=== PATIENT | female | born 1955 | race Caucasian/White ===

== ENCOUNTER 2019-11-28 14:08 | Inpatient (IN) | payer MEDICAID, OTHER ==
[2019-11-28 17:33] VITALS: BP 137/68
[2019-11-28] MEDS ORDERED: Magnesium Hydroxide (MOM) 30 mL UDC PO PRN (20:07)
--- NOTE | 2019-11-29 13:14 | History & Physical ---
ADMIT DATE: 11/29/2019 IDENTIFYING INFORMATION: The patient is a 64-year-old female. CHIEF COMPLAINT: "This is not my name " The patient was admitted on a hold for grave disability. HISTORY OF PRESENT ILLNESS: The patient was admitted on a hold that was written on 11/27/2019. She was delusional with destructive behavior, violent behavior with a history of schizophrenia, bipolar disorder with manic episodes and grandiosity. When I talked to the patient at the beginning, she would not answer me and she was pretended to be asleep, but then later, she opened her eyes and she said that is not her name. Her name is not Deanna Mercedes, her name is Antionette Sánchez. The patient was admitted on a hold for grave disability. The patient herself was not a very good historian. The patient reports that she is single. 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 The patient reports she has not been sleeping well. She has lost weight. She reports that she suffers with cancer. The doctor was giving her medications and that she did not like, so she decided not to continue with treatment. She says "this is my right, its my body and I decide what goes into it." I tried to call her family, called the two members that were on the records. Its son and daughter and her daughter left a message for the son. Voicemail was not set up yet. The patient was not a very good historian, delusional. The patient did not know where she was. She does not know why she is here. She reported they keep putting me in, nothing is wrong with me. She reports she has not been sleeping well, not eating well. She denies any visual hallucination. PAST PSYCHIATRIC HISTORY: The patient reported they put me in, but she is not sure why. She denies any prior suicide attempt. Denies any auditory or visual hallucination; however, she is delusional. SUBSTANCE ABUSE HISTORY: The patient denies. MEDICAL HISTORY: The patient suffers with breast cancer and currently refusing treatment, though she got some treatment before. ALLERGIES: THE PATIENT IS ALLERGIC TO CODEINE. FAMILY AND SOCIAL HISTORY: The patient reports she is to Antionette Sánchez. Patient reports that she has one boy, 22 years of age; however, on her records we have a number for her daughter and Nathan Hutchins, I am not sure if that is her son or somebody else, but she said she has a boy. The patient reported that she was from [place] and her current name is not Daren, she is Antionette Sánchez. 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 The patient denies family psychotic disorder. Unable to tell me, she said she lives in [place]. MENTAL STATUS EXAMINATION: The patient is appropriately dressed, not well groomed. She was in hospital gown. She was alert. She knew the date, being 11/29/2019, but she is not sure why she is here. She said they keep putting me in here. She reports that she has been sleeping or eating well. She denies any intent to harm herself or anyone. Denies any auditory or visual hallucination, delusional. She is here on a hold for grave disability. She was uncooperative with formal mental status exam did not have her memory tested or tell me the president of [facility]. She is a poor historian. Her insight about her illness is poor, does not realize what problem she has. Judgment is poor with her, unable to take care of herself acting delusional. IMPRESSION: Bipolar disorder with psychosis. MEDICAL DIAGNOSES: Deferred to the medical doctor. Her asset, accepting treatment. Negative poor coping skills. INITIAL TREATMENT PLAN: I will be starting the patient on Abilify, we will do group therapy, milieu therapy, and individual therapy. I will try to call the family again, I left them my number to call me. ESTIMATED LENGTH OF STAY 3-7 days. DISCHARGE CRITERIA: Decreasing delusional behavior, able to take care of herself. After discharge, outpatient treatment. JOB# [id number] [facility] SYSTEM[facility]
--- NOTE | 2019-11-29 13:27 | History & Physical ---
ADMIT DATE: 11/28/2019 IDENTIFYING INFORMATION: The patient is a 64-year-old female. CHIEF COMPLAINT: "I don't know how they got me here." DESCRIPTION OF ADMISSION: The patient was admitted on a hold for grave disability. HISTORY OF PRESENT ILLNESS: The patient was admitted on a hold for grave disability, written by Dr. Tom Hamilton The patient apparently is with grave disability. The patient apparently was delusional and disruptive behavior, sometimes violent behavior with a history of schizophrenia, bipolar disorder, manic episodes and grandiosity thinking. When I tried talk to the patient at the beginning, she would not open her eyes. She pretended to be asleep. Then, she said her name is not Deanna Mercedes, her name is actually Arnaldo Sánchez and that she lives in [place], [place], need to be back there with her in-laws. 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 The patient was delusional and grandiose. The patient reports no other visual hallucination. Denies any intent to harm herself or anyone. Denies any substance abuse. PAST PSYCHIATRIC HISTORY: The patient reports she has been hospitalized many times. The patient reported they keep putting me in here. She denies prior suicide attempt. She was not a great historian. PAST MEDICAL HISTORY: Breast cancer. She reports her medical doctor gave her all kind of chemotherapy and almost poisoned her. Then, she decided she was not wanted to do this anymore. ALLERGIES: THE PATIENT IS ALLERGIC TO CODEINE. FAMILY AND SOCIAL HISTORY: The patient reports that she is from [place] that she has one boy, 23 years of age and that she has some college education. 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 The patient reported that she needs to go back to [place], [place] to be with her in-laws and her boyfriend. MENTAL STATUS EXAMINATION: The patient is appropriately dressed, not very groomed. She was in bed. She was somewhat uncooperative. She was alert. She was able to tell me the date. She is not sure why she is here. She is not sure of where she is. 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 She denies any intent to harm herself or anyone. She denies any visual hallucination, but she was delusional, somewhat paranoid. She was uncooperative, would not tell me the president. Concentration is poor. Memory to answer questions appropriately, but she cannot tell me her age. She denies any auditory or visual hallucination, somewhat paranoid, delusional. Her long-term is ok ,can tell her age. Recent memory is poor. She is not sure the events let her coming here. Insight about her illness is poor, does not realize what problem she has. Judgment is poor as she is delusional and grandiose. IMPRESSION: Bipolar disorder with psychosis. MEDICAL DIAGNOSES: Deferred to the medical doctor. Her assets, she is accepting treatment. Negative for coping skills. PLAN: Plan will be started on Abilify. Discussed side effects. ESTIMATED LENGTH OF STAY: 3-7 days. DISCHARGE CRITERIA: Decreasing psychosis, delusion after discharge, outpatient treatment. JOB# [id number] [facility]
--- NOTE | 2019-11-29 16:08 | History & Physical ---
ADMIT DATE: 11/29/2019 CHIEF COMPLAINT: Depression. HISTORY OF PRESENT ILLNESS: We have a 64-year-old female with stage 4 breast cancer, schizophrenia, bipolar, who is transferred here for grave disability. The patient is feeling to be acknowledge that she is Deanna Mercedes. She claims that she is Antionette Sánchez. The patient denies any pain, shortness of breath, nausea, vomiting, abdominal pain. PAST MEDICAL HISTORY: 1. Metastatic breast cancer. 2. Schizophrenia. 3. Bipolar. PAST SURGICAL HISTORY: As mentioned above. MEDICATIONS: Reviewed. ALLERGIES: None. SOCIAL HISTORY: Tobacco, IV drugs, ETOH negative. PHYSICAL EXAMINATION: VITAL SIGNS: Temperature is 97.7, pulse 104, respirations 105/64, saturating 100% on 2 liters. HEENT: Normocephalic, atraumatic head exam. NECK: Supple. CARDIOVASCULAR: Regular rate and rhythm. LUNGS: Decreased breath sounds. ABDOMEN: Soft, nontender. EXTREMITIES: No edema, cyanosis or clubbing. ASSESSMENT AND PLAN: 1. Metastatic breast cancer. 2. Bipolar. 3. Schizophrenia. I will review the records and we will continue with medical management. JOB# [id number]
[2019-12-02] MEDS ORDERED: Benztropine 1 mg/mL 2 mL Vial IM PRN (12:11)
[2019-12-02] MEDS ORDERED: Haloperidol Lactate 5 mg/mL 1mL Vial IM ONE (12:30)
--- NOTE | 2019-12-02 16:18 | Progress Notes ---
DATE: 11/30/2019 SUBJECTIVE: Case was discussed with staff of the patient, reviewed records. I talked to her daughter yesterday and she explained to me that the patient does not have a son 22 that is her nephew. When I discussed with the patient today, she got upset, she said "no, I don't know her. I don?t know what I am doing." She refused to talk to me. She apparently has been hospitalized many times according to her daughter because of her delusional behavior. The patient continues to be unable to make safe plan for self-care. No side effects with the medication, no sedation, no nausea, no extrapyramidal symptoms. I will be increasing her Abilify to 7.5 mg daily. No side effects with the medication, no sedation, no nausea, no extrapyramidal symptoms. MENTAL STATUS EXAMINATION: The patient is uncooperative. Continues to be delusional, believes she is not Deanna Mercedes, easily agitated, internally preoccupied. Not sleeping, not eating. ASSESSMENT: The patient continues to be delusional. Continues to be grandiose, unable to make safe plan for self-care. PLAN: I will be increasing Abilify 7.5 mg daily. We will continue outpatient group therapy, milieu therapy, adjust medication as needed. JOB# [id number]
--- NOTE | 2019-12-02 16:18 | Progress Notes ---
DATE: 12/01/2019 Case was discussed with staff of the patient, reviewed records. The patient continues to be delusional, has been refusing medication yesterday and today and tomorrow will be the third time if she refuses it. So, the patient when I tried to ask her why she is not taking her medication, would not answer me back. I asked if she took any other medication that she is willing to take and I did try to explain to her the side effects with the medication; however, she put her finger on her mouth like shut up and kept going, would not participate with me in any meaningful conversation, unpredictable, impulsive, needing redirection. She still believes she does not need to be here. She Continues to have poor insight, unable to make safe plan for self-care, easily agitated. No side effects with the medication. She is not currently taking any medication. I will be initiating a Riese on this patient to initiate her on medication to help with her delusional behavior. We will continue outpatient group therapy, milieu therapy, and adjust medications as needed. JOB# [id number] [facility]
--- NOTE | 2019-12-02 16:59 | Progress Notes ---
DATE: 12/02/2019 Case was discussed with staff of the patient, reviewed records. The patient continues to be psychotic, delusional. She believes she is not Deanna Mercedes, refused to take her medication. She believes that she does not need to be on any medication. Continues to have poor insight, unpredictable, impulsive, needing redirection. We are having a Riese hearing on this patient today and if it is approved, which she will be started on Haldol IM if refuses p.o. and so far, we will discuss side effects. We will continue to work with the patient in group therapy, milieu therapy, and adjust the medications as needed. JOB# [id number]
[2019-12-03] MEDS ORDERED: Haloperidol Lactate 5 mg/mL 1mL Vial IM PRN (07:43)
--- NOTE | 2019-12-03 10:33 | Progress Notes ---
DATE: 12/03/2019 SUBJECTIVE: A 64-year-old female, currently in the hospital, noted to be sleeping, arousable, also has schizophrenia, not saying too much, resistant to speaking with me this morning, on [id number], had a hard time interviewing her. I tried talking to her, but she does not want to talk to me. Dr. Baker noting that she continues to be psychotic, delusional, does not believe that her name is Deanna Mercedes. When I asked her if her name is Deanna Mercedes, she says "no." Dr. Baker having to Riese the patient. She was resistant to taking medications. Medications were reviewed. Labs were reviewed. Vitals were reviewed. Blood pressure 157/104, pulse of 99. ASSESSMENT: A 64-year-old female, poor medication compliance, Riese petition filed, ongoing psychosis, somewhat complex case, given her poor med compliance, psychotic symptoms, difficult interview. PLAN: We will follow alongside over the weekend, covering for Dr. Baker. JOB# [id number]
--- NOTE | 2019-12-04 11:39 | Progress Notes ---
DATE: 12/04/2019 SUBJECTIVE: A 64-year-old female in the hospital, noted to be sleeping, arousable, does not want to really speak with me, telling me to come back later, history of schizophrenia. I tried to speak with her further. She is pretty disoriented. She knows her name. She knows that she is in the hospital; otherwise, cannot tell me much further, ongoing agitation and some escalation of behaviors. The patient has been engaged with family, also more engage with staff, staff noting some bizarre behaviors, selectively mute, bizarre behaviors, bending herself in odd positions on the bed, sleeping on the bathroom floor also. The patient with history of poor medication compliance, not really answering questions when I asked her about her poor med compliance. Medications were reviewed. Labs were reviewed. Vitals were reviewed. Ongoing concerns for psychotic symptoms. No overt side effects. There were some concerns for EPS, shaking as per staff. Blood pressure 139/89, pulse ranges from 65 to 112. ASSESSMENT: A 64-year-old female with ongoing psychotic symptoms, bizarre behaviors, resistance to treatment. PLAN: The patient to follow up with Dr. Baker in the morning. We will continue to monitor. Fairly calm this morning. JOB# [id number]
[2019-12-05] MEDS: Maalox 30 mL Cup PO PRN ×2 (04:24→20:18)
--- NOTE | 2019-12-05 19:41 | Progress Notes ---
DATE: 12/05/2019 Case was discussed with staff of the patient, reviewed records. The patient was Riese on Thursday and it was upheld and the patient was started on Haldol 5 mg to be given IM if refuses p.o. Today, she knows her name is Deanna, so she is definitely better. When I talked to her about her treatment for cancer, she asks me if I knew she has cancer, I told I did. She said that she has a doctor that is overdosing her chemo and that she plans to go with her boyfriend to see somebody else who probably will give a second opinion. The patient seems to be showing progress. The patient's vital signs are stable. She is starting to be more clear. She is compliant with the medication now with no side effects, no sedation, no nausea, no extrapyramidal symptoms. I will be increasing her Abilify to 10 mg daily to help improve her psychotic symptoms. She is sleeping better, eating better, not acting in any way delusional. No side effects with the medication, no sedation, no nausea, no extrapyramidal symptoms. We will continue outpatient group therapy, milieu therapy, and adjust medications as needed. JOB# [id number]
--- NOTE | 2019-12-06 14:23 | Progress Notes ---
DATE: 12/06/2019 Case was discussed with staff of the patient, reviewed records. The patient is more appropriate. She is still looking disheveled. She believes she is Deanna, she said she has two girls and one grandson that she has raised 23 years of age. She has a boyfriend that they were split for a while because there is center, now they are getting back together, planning to get . She seems to be getting back to her normal self, but she is still at times agitated, irritable. She is sleeping better, eating better. No side effects with the medication, no sedation, no nausea, no extrapyramidal symptoms. I will see the patient in group therapy, milieu therapy, and adjust medications as needed. JOB# [id number]
--- NOTE | 2019-12-07 10:35 | Progress Notes ---
DATE: 12/07/2019 Case was discussed with staff of the patient, reviewed records. The patient continues to have poor insight, though she knows she is standard now and I asked her why she would not respond to her name before she said because she does not like that name a. She is delusional. She continues to have poor insight, continues to be unable to make safe plan for self-care. No side effects with the medication, no sedation, no nausea, no extrapyramidal symptoms. I did increase her Abilify that was yesterday at bedtime, more time before adjusting the dose further, so she was having side effects. The patient reports she has a boyfriend and he will help take care of her, have to go to see another oncologist for a second opinion regarding her chemotherapy and no side effects of the medication, no sedation, no nausea, no extrapyramidal symptoms. We will continue outpatient group therapy, milieu therapy, and adjust medications as needed. [facility]# [id number] [facility]
--- NOTE | 2019-12-07 14:16 | Internal Medicine Prog Note ---
Internal Medicine Subjective - Subjective Service Date: 12/07/19 Patient seen and examined:: without staff Patient is:: awake Per staff patient has:: no adverse event, no episodes of fall Internal Medicine Objective - Results Recent Labs: Laboratory Last Values POC Glucose 95 MG/DL (70 - 105) 11/29/19 16:34 - Physical Exam Vitals and I&O: Vital Signs Temp 98.4 F 12/07/19 14:13 Pulse 104 12/07/19 14:13 Resp 18 12/07/19 14:13 BP 103/54 12/07/19 14:13 Pulse Ox 98 12/07/19 14:13 Intake & Output 12/06/19 12/07/19 12/07/19 18:59 06:59 18:59 Intake Total 800 240 Balance 800 240 Intake: Oral 800 240 Other: # Voids 4 2 # Bowel Movements 0 Stool Characteristics Formed Formed Brown Brown Active Medications: Current Medications Acetaminophen (Tylenol 650mg/20.3ml Suspension) 650 mg PO Q4H PRN PRN Reason: mild pain Stop: 01/27/20 18:20 Al Hydrox/Mg Hydrox/Simethicone (Maalox) 30 ml PO Q4HR PRN PRN Reason: GI DISTRESS Stop: 01/27/20 20:06 Last Admin: 12/05/19 20:18 Dose: 30 ml Aripiprazole (Abilify) 10 mg PO DAILY DUC; Protocol Stop: 02/04/20 08:59 Last Admin: 12/07/19 08:30 Dose: 10 mg Benztropine Mesylate (Cogentin) 0.5 mg PO BID PRN PRN Reason: EPS Stop: 01/31/20 16:59 Last Admin: 12/03/19 16:06 Dose: 0.5 mg Benztropine Mesylate (Cogentin) 0.5 mg IM BID PRN PRN Reason: EPS if refused po Cogentin Stop: 01/31/20 12:10 Haloperidol Lactate (Haldol) 5 mg IM DAILY PRN PRN Reason: Agitation Stop: 02/01/20 07:42 Lorazepam (Ativan) 0.5 mg PO Q6HR PRN; Protocol PRN Reason: Agitation Stop: 01/27/20 18:18 Last Admin: 12/07/19 08:30 Dose: 0.5 mg Magnesium Hydroxide (Milk Of Magnesia) 30 ml PO HS PRN PRN Reason: Constipation Zolpidem Tartrate (Ambien) 5 mg PO HS PRN PRN Reason: Insomnia Stop: 01/27/20 18:17 Last Admin: 12/06/19 20:37 Dose: 5 mg HEENT: NC/AT, PERRLA Neck: Supple Lungs: CTAB Cardiovascular: RRR, Normal S1, Normal S2 Abdomen: soft, non-tender Extremities: clear Internal Medicine Assmt/Plan - Assessment Assessment: 1. Metastatic breast cancer 2. Bipolar disorder 3. Schizophrenia - Plan Plan: continue supportive care d.w r.n. Nutritional Asmnt/Malnutr-PDOC - Dietary Evaluation Malnutrition Findings (Please click <Entered> for more info): Nutritional Asmnt/Malnutrition Start: 12/03/19 09: 35 Text: Status: Complete Freq: Protocol: Document 12/03/19 09:35 MMVIVIANA (Rec: 12/03/19 09:52 [id number] RENATE- FNS4) Nutritional Asmnt/Malnutrition Patient General Information Nutritional Screening Low Risk Diagnosis Psychosis Pertinent Medical Hx/Surgical Hx Breast cancer, schizophrenia, bipolar. Subjective Information Patient was admitted for grave diability. Per nursing notes, patient is refusing some meals. Current Diet Order/ Nutrition Support Regular Patient / S.O Not Indicated Pertinent Medications Maalox, MOM Pertinent Labs POC Glucose 90-95 Nutritional Hx/Data Height 1.6 m Height (Calculated Centimeters) 160.0 Current Weight (lbs) 57.153 kg Weight (Calculated Kilograms) 57.2 Weight (Calculated Grams) 43819.6 Hudson Body Weight 115 % Hudson Body Weight 109 Body Mass Index (BMI) 22.3 Recent Weight Change No Weight Status Approriate GI Symptoms GI Symptoms None Last BM 11/30 x 1 Difficult in: None Food Allergies No Cultural/Ethnic/Taoism Belief none indicated Usual diet at home regular Skin Integrity/Comment: Vasquez Aguilar 21 Current %PO Negligible < 25% Estimated Nutritional Goals BEE in Kcals: Using Current wt Calories/Kcals/Kg 57.2 kg CBW 25-30 kcal/kg Kcals Calculated ~1002-6662 kcal/day Protein: Using Current wt Protein g/kgm/kg Protein Calculated 55gm/day Fluid: ml ~3336-1551 ml/day (1 ml/kcal) Nutritional Problem 1. Problem Problem Inadequate oral intake related to Etiology possible poor appetite aeb Signs/Symptoms: PO intake <25% of meals, refusing some meals Intervention/Recommendation Comments 1. Continue regular diet as tolerated by patient. 2. Encourage oral intake and assist with meals as needed. 3. Add Ensure Enlive TID to supplement calories/protein. Expected Outcomes/Goals Expected Outcomes/Goals Oral intake >75% of meals, weight stable, nutrition related labs WNL F/U MR
--- NOTE | 2019-12-08 11:50 | Progress Notes ---
DATE: 12/08/2019 SUBJECTIVE: Case was discussed with staff of the patient, reviewed records. The patient is more visible on the unit. She is able to express herself better now. She knows she is alexandria . She responds well to her name. She has been compliant with her medication with no side effects, no sedation, no nausea, no extrapyramidal symptoms. She tolerated the increase in her medication. No side effects of the medication, no sedation, no nausea, no extrapyramidal symptoms. Her delusions are not as prominent, making more sense. She reports she will be going with her boyfriend and then plan to go see a oncologist for a second opinion. she needs a boateng test to be able to make appointment with oncologist if it comes back negative which is pending We will continue outpatient group therapy, milieu therapy, adjust the medication as needed. JOB# [id number] [facility]
--- NOTE | 2019-12-09 14:03 | Progress Notes ---
DATE: 12/09/2019 Case was discussed with staff of the patient, reviewed records. The patient apparently Marquez test is not back yet. The patient insists is negative in fact wants to go and I discussed with her that she will need to make sure she is okay. The patient preoccupied with discharge. She said we prevent her from attending her grandson graduation that we should be keeping her that she needs to go see the oncologist because she has cancer, unable to prevent her from getting the right treatment. I discussed with her that she cannot really make an appointment without Marquez testing negative and we are trying to help her do that. The patient continues to have poor insight, unpredictable, impulsive, continues to be unable to make safe plan for self-care. However, we are trying to facilitate her discharge by making sure that the patient trying to facilitate her going to see an Oncologist by doing the Marquez test and hopefully if that is negative, then she cannot make an appointment and then she will be ready to go. She does have a supportive family. I did talk to her daughter upon admission and staff talked to her yesterday and they were told that they have a very supportive family. No side effects with the medication, no sedation, no nausea. She tolerated increase in Abilify with no side effects. We will continue outpatient group therapy, milieu therapy, adjust medication as needed. JOB# [id number]
--- NOTE | 2019-12-10 20:39 | Progress Notes ---
DATE: 12/10/2019 IDENTIFYING DATA: A 64-year-old female brought in here for grave disability, delusional, disruptive behavior ____ with a history of schizophrenic. Early as yesterday, documented that the patient has been isolated, disengaged in her room. Today on [id number] evaluation, the patient is mostly ____ discharge. She reports that she wants to see her medical doctor because of the history of breast cancer. We reassured her that Dr. Norwood will come and evaluate and talk to her and coordinate with her oncologist. It is also yesterday noted the patient is currently has pending boateng test and she cannot make an appointment until it is negative. I will continue with primary psychiatry treatment plan and goals, which include the recent increase of Abilify. She denies any complications or side effects with the current medication regimen. JOB# [id number]
--- NOTE | 2019-12-11 19:06 | Progress Notes ---
DATE: 12/11/[address] Baker. Today on [id number] evaluation, the patient is noted that her emotion continues to improve. She is continuing preoccupied about her cancer radiation treatment. She reports that she feels less distressed about it. ASSESSMENT AND PLAN: History of depression. We will continue monitoring the current medications adjustments by Dr. Baker. Per returning physician, the patient seems more redirectable in the last 24 hours, unable to formulate, awaiting COVID testing. JOB# [id number]
[2019-12-12] MEDS: Maalox 30 mL Cup PO PRN ×2 (05:28→09:29)
--- NOTE | 2019-12-12 15:30 | Progress Notes ---
DATE: 12/12/2019 SUBJECTIVE: Case was discussed with staff of the patient, reviewed records. The patient also discussed the care with her daughter by the name of Felisa Jaycob The patient's boateng just back not detectable. The patient is taking her medications. She is actually ready to go to a lesser level of care; however, I discussed the care with her daughter. She had no psychiatrist. We would like her to have a psychiatrist, so they can follow up and they live in [place]. So, we are making plans for her to be discharged tomorrow, so they can be able to get an appointment with a psychiatrist in her area. The patient is sleeping better, eating better. No side effects with the medication, no sedation, no nausea, no extrapyramidal symptoms and hopefully working on discharge to home tomorrow. The patient reports she wants to go to [facility], so she can see another doctor there because she did not trust her oncologist because she feel he overdosed her on chemotherapy, and we will continue outpatient group therapy, milieu therapy, and adjust the medication as needed. We will plan to discharge her tomorrow. JOB# [id number] MIRNA
--- NOTE | 2019-12-13 15:46 | Discharge Summary ---
DATE OF DISCHARGE: 12/12/2019 IDENTIFYING INFORMATION: The patient is a 64-year-old female. CHIEF COMPLAINT: The patient was admitted on a hold for grave disability. HISTORY OF PRESENT ILLNESS: The patient is a poor historian. She reported that "this is not my name." The patient came on holi on 11/27/2019. The patient was delusional, destructive violent behavior with a history of schizophrenia, bipolar disorder, manic episodes, and grandiosity. I talked to the patient; she would not answer any of my questions, pertaining to be asleep, and then later she opens her eyes and she says this is not her name, it is not Deanna Mercedes, and her name is Antionette Sánchez. COURSE IN THE HOSPITAL: Refused to take medications. She kept saying that this is not her name; we have to reise and go to court. It was upheld. We will start her on Abilify and with the intention of giving her Haldol if she refuses p.o. Abilify. The patient is ALLERGIC ONLY TO CODEINE. The patient progressively got better as soon as she stopped taking medication, but in 3-4 days she is starting getting back to herself. She was able to recognize her name. She admits that this is her name. She says she has a boyfriend. She has cancer and has been refusing treatment; however, she started to make plans to go to a new oncologist as she did not trust her oncologist because she felt she was overdue on her chemotherapy, I talked to her daughter twice. The patient lives in [place]; family wants her to have an appointment with a psychiatrist in [place]. So, I wished to do so. The patient was doing well. We have to test her for COVID-19 and it was nondetected because they could not make her an appointment with oncologist on that. She is testing negative for COID-19. The patient was doing well. She was sleeping well, eating well. She was no longer psychotic. She denies any intent to harm herself or anyone. She denies any visual loss or paranoia. Denies having any side effects . She could be discharged to a lesser level of care. CONDITION ON DISCHARGE: The patient was able to function and take care of herself, ADLs, alert and oriented to place, person, time, and situation. Lab work showed blood sugar within normal limits. FINAL DIAGNOSES: Bipolar disorder with psychosis. MEDICAL DIAGNOSIS: Breast cancer, deferred to medical doctor. The patient will follow up with the psychiatrist, primary care physician and therapist. EXPECTED OUTCOME: Stable, if the patient complies with the above. JOB# [id number] [facility]
== END 2019-12-13 15:11 | disposition home or self-care (01) | DRG 885 ==
LOC: GERO 16:53
PROVIDERS: ADMIT Psychiatry & Neurology Psychiatry; ATTEND Psychiatry & Neurology Psychiatry
DX: F31.9 Bipolar disorder, unspecified (principal); F20.9 Schizophrenia, unspecified; Z20.828 Contact with and (suspected) exposure to other viral communicable diseases; C50.919 Malignant neoplasm of unspecified site of unspecified female breast; F29 Unspecified psychosis not due to a substance or known physiological condition; Z88.5 Allergy status to narcotic agent; Z79.899 Other long term (current) drug therapy
CPT/HCPCS: 82948-90; 83036-90; G0410; J1630; Z7610